=== PATIENT | male | born 1940 | race Caucasian/White ===

== ENCOUNTER → 2020-10-09 | Outpatient (CLI) | payer MEDICARE | END | disposition home or self-care (01) | LOC: OIH 11:03 | PROVIDERS: ATTEND Internal Medicine | DX: M47.816 Spondylosis without myelopathy or radiculopathy, lumbar region (principal); M48.061 Spinal stenosis, lumbar region without neurogenic claudication; M25.78 Osteophyte, vertebrae | CPT/HCPCS: 72100 ==

== ENCOUNTER → 2024-03-01 | Outpatient (CLI) | payer OTHER | END | disposition home or self-care (01) | LOC: RAH 08:57 | PROVIDERS: ATTEND Internal Medicine Pulmonary Disease | DX: J98.6 Disorders of diaphragm (principal); R06.09 Other forms of dyspnea | CPT/HCPCS: 76000 ==

== ENCOUNTER 2024-07-29 10:24 | Observation (INO) | payer OTHER ==
[~2024-07-29] VITALS: Ht 177.8 cm; Wt 93.0 kg
--- NOTE | 2024-07-29 10:40 | HMCIMG ---
Exam: NONCONTRAST CT BRAIN REASON: stroke. COMPARISON: None. TECHNIQUE: Images are obtained from vertex to the skull base. The exam was performed without IV contrast. FINDINGS: There are generous ventricles and sulci. There is decreased attenuation in the deep central white matter. These findings are consistent with atrophy. There are no acute appearing focal parenchymal lesions. There is no evidence of mass, intracranial hemorrhage or acute stroke. Posterior fossa and brainstem structures appear unremarkable. There are no abnormal fluid collections. Extra cranial soft tissues appear unremarkable as well. IMPRESSION: 1. Atrophy, no acute finding. CT was performed with one or more following dose reduction techniques: automated exposure control, adjustment of the mA and kv according to patient's size, or use of a iterative reconstruction technique.
--- NOTE | 2024-07-29 10:42 | ERN ---
General Chief Complaint: Stroke Symptoms Stated Complaint: SLURRED SPEECH, FACIAL NUMBNESS Time Seen by MD: 10:28 History of Present Illness Initial Comments 83-year-old male history of diabetes previous stroke hypertension presents for stroke-like symptoms. Patient reports that around 10:00 a.m. this morning he felt some numbness to the right side of his face and in his right arm. He said the symptoms lasted about 20 minutes and resolved. He had no motor dysfunction, but he says he felt a numbness sensation. He also reports that he was having difficulty speaking at the time, questionable slurred speech. He reports that since he has arrived here in the ER his symptoms have improved. He was speaking clearly. He denies any headache or vision changes. He denies any chest pain. He reports that he has been in his normal state of health recently. He reports that he did have a stroke in the past on the left side which has a similar presentation. He denies any prolonged deficits from that stroke. Allergies: Uncoded Allergies: UNKNOWN NAME OF MEDICATION STEPHANIRETHAN (Adverse Reaction, Mild, HALLUCINATIONS, 07/29/24) ROS Dictation CONSTITUTIONAL: No chills, no fever, no weakness, no diaphoresis, no malaise. HEAD/FACE: No signs of trauma. EENT: No eye pain, no blurred vision, no tearing, no double vision, no ear pain, no ear discharge, no nose pain, no nasal congestion, no throat pain, no throat swelling, no mouth pain. RESPIRATORY: No cough, no orthopnea, no SOB, no stridor, no wheezing. CARDIOVASCULAR: No chest pain, no edema, no palpitations, no syncope. GASTROINTESTINAL/ABDOMINAL: No abdominal pain, no constipation, no diarrhea, no nausea, no vomiting. GENITOURINARY: No abnormal discharge, no dysuria, no frequent urination, no hematuria. No complaints of pain in the genitals. MUSCULOSKELETAL: No back pain, no gout, no joint pain, no joint swelling, no muscle pain, no muscle stiffness, no neck pain. INTEGUMENTARY: No change in color, no change in hair/nails, no dryness, no lesion, no lumps, no rash. NEUROLOGICAL/PSYCH: Right-sided face numbness and anesthesias of the arm HEMATOLOGIC/LYMPHATIC: Not anemic, no history of blood clots, no apparent bleeding, no bruising, glands not swollen. All Systems Negative, Except as Noted. Physical Exam Physical Exam Dictation VITAL SIGNS: Reviewed. GENERAL APPEARANCE: Alert, oriented x3, no acute distress, generally weak. Wheelchair-bound. HEAD AND FACE: Non-traumatic. EYES: PERRL, pink conjunctivas, eyelid no trauma, anterior chamber clear. EARS: Pinnas intact and no signs of trauma or erythema. Ear canals clear and no discharge. TMs no erythema. NOSE: No discharge, no bleeding. OROPHARYNX: Mouth normal, teeth no caries, tongue pink. Pharynx clear, no erythema. Tonsils no exudates, no abscesses noted. Mucous membrane moist. NECK: Supple, non-tender, no thyromegaly, no masses, no JVD, no bruits. BREAST: Deferred. CHEST: No tenderness, no crepitus, no paradoxical movement, no retractions. LUNGS: Clear, well-ventilated, symmetric, no rales, no wheezing, no rhonchi, no stridor, good breath sounds bilaterally. HEART: Regular rate, regular rhythm, no murmur, no gallops. VASCULAR: No peripheral edema. ABDOMEN: Soft, positive bowel sounds, nondistended, no guarding, nontender, no rebound, no masses no hepatomegaly, no splenomegaly, no Cabrera's sign, no herni as. RECTAL: Deferred. GENITAL: Deferred. NEUROLOGICAL: Normal speech, gross motor function intact, gross sensory function intact. MUSCULOSKELETAL: Neck nontender, full range of motion, back nontender, full range of motion. EXTREMITIES: Nontender, full range of motion. SKIN: Color pink, dry, no turgor, no rash, no lacerations, no abrasions, no contusions. LYMPHATICS: Deferred. Stroke Patient?: Ischemic Is Patient Candidate for t-PA?: No Did the Patient Receive t-PA?: No NIH STROKE SCALE: NIH STROKE SCALE Response (Comments) Value Level of Consciousness Alert 0 Ask patient month and their age Answers both correct 0 Command to open eyes, make fist and let go Obeys both correct 0 Best gaze (horizontal eye movement) Normal 0 Visual Field Testing No Visual Field Loss 0 Facial Paresis Normal / Symmetrical 0 Motor Function - Left Arm Normal 0 Motor Function - Right Arm Normal 0 Motor Function - Left Leg Normal 0 Motor Function - Right Leg Normal 0 Limb Ataxia No Ataxia 0 Sensory-pin prick to arms, legs, trunk and face Mild to Moderate Decrease 1 Best Language (describe picture, name items and read) No Aphasia 0 Dysarthria (read several words) Normal Articulation 0 Extinction and Inattention Normal 0 Total 1 Neuro Comment: Total of one Results Laboratory and Microbiology Lab and Micro Result Laboratory Tests Test 07/29/24 10:58 White Blood Count 5.3 K/uL (4.8-10.8) Red Blood Count 4.77 MIL/uL (4.50-6.20) Hemoglobin 13.9 g/dL (14.0-18.0) L Hematocrit 42.0 % (42-54) Mean Corpuscular Volume 88.1 fL (79-99) Mean Corpuscular Hemoglobin 29.1 pg (27.0-33.0) Mean Corpuscular Hemoglobin Concent 33.1 g/dL (32.0-36.0) Red Cell Distribution Width 14.1 % (11.0-15.5) Platelet Count 174 K/uL (130-400) Mean Platelet Volume 10.1 fL (7.5-10.5) Immature Granulocyte % (Auto) 0.2 % (0-1) Neutrophils (%) (Auto) 60.2 % (40.0-77.0) Lymphocytes (%) (Auto) 28.2 % (21.0-51.0) Monocytes (%) (Auto) 7.2 % (3.0-13.0) Eosinophils (%) (Auto) 3.8 % (0.0-8.0) Basophils (%) (Auto) 0.4 % (0.0-5.0) Neutrophils # (Auto) 3.2 K/uL (1.8-7.7) Lymphocytes # (Auto) 1.5 K/uL (1.0-4.8) Monocytes # (Auto) 0.4 K/uL (0.1-1.0) Eosinophils # (Auto) 0.20 K/uL (0.00-0.70) Basophils # (Auto) 0.02 K/uL (0.00-0.20) Absolute Immature Granulocyte (auto 0.01 K/uL (0-1) Nucleated Red Blood Cells 0.0 % (0.0-0.19) Sodium Level 141 mmol/L (136-145) Potassium Level 4.1 mmol/L (3.5-5.1) Chloride Level 104 mmol/L (101-111) Carbon Dioxide Level 25 mmol/L (21-32) Blood Urea Nitrogen 16 mg/dL (7-18) Creatinine 1.1 mg/dL (0.5-1.3) Glomerular Filtration Rate Calc 67 mL/min (>90) Random Glucose 260 mg/dL (70-105) H Total Calcium 9.1 mg/dL (8.5-10.1) Total Creatine Kinase 208 U/L (21-232) LDL Cholesterol 40 mg/dL (0-99) MDM CC: Stroke symptoms, paresthesia to the right face and arm. Historian: Patient Comorbidities: Advanced age, or history of stroke, history of hypertension Differential diagnosis: Stroke, TIA, paresthesia Patient onset of symptoms 10:00 a.m.. NIHSS of one initial evaluation. CT head without contrast per my independent interpretation shows no acute bleed or abnormalities. There was some generalized atrophy. EKG: NSR rate of 65 with a left axis deviation good R-wave progression intervals are stable no STEMI. Independently interpreted by me. On re-evaluation patient reports that his symptoms have completely resolved. NIHSS of 0. There is no indication for thrombolytics at this time, he has a very low NIHSS with waxing symptoms currently has 0 symptoms. His lab work is unremarkable. We will admit for TIA/stroke workup. ED Course Orders Procedure Category Date Status Time Ct Head/Brain W/O CT 07/29/24 Resulted Contrast 10:28 Cbc With Differential LAB 07/29/24 In Process 10:29 Prothrombin Time With LAB 07/29/24 In Process INR 10:29 Partial LAB 07/29/24 In Process Thromboplastin Time 10:29 Chest 1vw RAD 07/29/24 Taken 10:29 12 Lead Ekg Tracing- EKG 07/29/24 Complete Technical 10:29 Creatine Kinase, Total LAB 07/29/24 Complete 10:29 Ldl Direct LAB 07/29/24 Complete 10:29 Troponin I High LAB 07/29/24 In Process Sensitivity 10:29 Urinalysis Profile LAB 07/29/24 Logged 10:29 B-Type Natriuretic LAB 07/29/24 In Process Peptide 10:29 Bedside Glucose CPOE 07/29/24 Transmitted Fingerstick 10:29 Basic Metabolic Panel LAB 07/29/24 Complete 10:29 Aspirin 325mg Tab PHA 07/29/24 Transmitted (Aspirin 325mg Tab) 11:30 Vital Signs Date Time Temp Pulse Resp B/P (MAP) Pulse Ox O2 Delivery O2 Flow Rate FiO2 07/29/24 10:25 97.9 63 20 167/77 95 Room Air DX & DISP Disposition: Inpatient Departure Impression: Primary Impression: TIA (transient ischemic attack) Critical Time: 30 minutes (Critical Care Procedure NoteAuthorized and Performed by: meTotal critical care time: Approximately 36 minutesDue to a high probability of clinically significant, life threatening deterioration, the patient required my highest level of preparedness to intervene emergently and I personally spent this critical care time directly and personally managing the patient. This critical care time included obtaining a history; examining the patient; pulse oximetry; ordering and review of studies; arranging urgent treatment with development of a management plan; evaluation of patient's response to treatment; frequent reassessment; and, discussions with other providers.This critical care time was performed to assess and manage the high probability of imminent, life-threatening deterioration that could result in multi-organ failure. It was exclusive of separately billable procedures and treating other patients and teaching time.Please see MDM section and the rest of the note for further information on patient assessment and treatment.) Condition: Stable Referrals: NONE (PCP) WILLIS PRATT DO Jul 29, 2024 10:42
--- NOTE | 2024-07-29 10:53 | EKG ---
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
[2024-07-29 11:12] LABS: BASOPHILS # (AUTO) 0.02 K/uL (0.00-0.20); BASOPHILS % (AUTO) 0.4 % (0.0-5.0); EOSINOPHILS % (AUTO) 3.8 % (0.0-8.0); IMMATURE GRANULOCYTE ABSOLUTE 0.01 K/uL (0-1); LYMPHOCYTES # (AUTO) 1.5 K/uL (1.0-4.8); LYMPHOCYTES % (AUTO) 28.2 % (21.0-51.0); MEAN CORPUSCULAR HEMOGLOBIN 29.1 pg (27.0-33.0); MEAN CORPUSCULAR HGB CONC 33.1 g/dL (32.0-36.0); MEAN CORPUSCULAR VOLUME 88.1 fL (79-99); MONOCYTES # (AUTO) 0.4 K/uL (0.1-1.0); MONOCYTES % (AUTO) 7.2 % (3.0-13.0); NEUTROPHILS # (AUTO) 3.2 K/uL (1.8-7.7); NEUTROPHILS % (AUTO) 60.2 % (40.0-77.0); PLATELET COUNT (AUTO) 174 K/uL (130-400); RED BLOOD CELL COUNT(AUTO) 4.77 MIL/uL (4.50-6.20); RED CELL DISTRIBUTION WIDTH 14.1 % (11.0-15.5); WHITE BLOOD COUNT (AUTO) 5.3 K/uL (4.8-10.8)
[2024-07-29 11:14] LABS: CREATININE 1.1 mg/dL (0.5-1.3); POTASSIUM 4.1 mmol/L (3.5-5.1)
[2024-07-29 11:28] LABS: INR 0.99 (0.85-1.15); PROTHROMBIN TIME 10.7 SEC (9.6-11.6)
[2024-07-29 11:30] LABS: PARTIAL THROMBOPLASTIN TIME 26.5 SEC (26.3-35.5)
--- NOTE | 2024-07-29 11:35 | NUR ---
MOVED FROM ER 7 TO ER 10 AT THIS TIME
--- NOTE | 2024-07-29 11:41 | NUR ---
AT THIS TIME PATIENT STATES ALL SYMPTOMS HAVE RESOLVED
[2024-07-29 11:43] LABS: B-TYPE NATRIURETIC PEPTIDE 26 pg/mL (0-100)
--- NOTE | 2024-07-29 11:45 | HMCIMG ---
CHEST 1VW REASON: stroke symptoms COMPARISON: None. FINDINGS: Single view of the chest was obtained. Lungs are clear. Heart size is normal. There is no pulmonary vascular congestion. Mediastinum and bony thorax appear unremarkable. Elevated left hemidiaphragm is again noted. IMPRESSION: 1. No acute process seen in chest and no interval change.
--- NOTE | 2024-07-29 11:46 | NUR ---
NEUROLOGY CONSULT: PATIENT REPORT GIVEN TO DR MCGRAW BY DR PRATT
[2024-07-29] MEDS: ASPIRIN 325MG TAB PO ONE (11:49)
[2024-07-29] MEDS ORDERED: PANT40TA54 PO (11:59)
[2024-07-29] MEDS ORDERED: ASPI-1005 PO (11:59)
[2024-07-29] MEDS ORDERED: METF-446 PO (11:59)
[2024-07-29] MEDS ORDERED: ROSU20TA98 PO (11:59)
[2024-07-29] MEDS ORDERED: LUTE1CAP5 PO (11:59)
[2024-07-29] MEDS ORDERED: MECO10005 PO (11:59)
[2024-07-29] MEDS ORDERED: KETO15CR2 TP ×2 (11:59)
[2024-07-29] MEDS ORDERED: AMLO-257 PO (11:59)
[2024-07-29] MEDS ORDERED: OMEG100033 PO (11:59)
--- NOTE | 2024-07-29 11:59 | NUR ---
HOME MEDICATIONS UPDATED ON EMR
--- NOTE | 2024-07-29 12:09 | HP ---
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 Patient states his symptoms started around 10:00 a.m. this morning when he noted that he was having right facial numbness and numbness in the right upper extremity with associated speaking difficulty. He noted his speech was slurred. Thereafter he went to the ED where his symptoms resolved without intervention. He denied any headaches, fall, chest pain, shortness of breath, lower extremity pain or numbness, abdominal pain, nausea, vomiting. Patient states he had a previous stroke around few month ago. Initially started on full-dose aspirin. He followed up with a neurologist around two weeks ago and was later switched to aspirin 81 mg. Patient currently has been taking aspirin 325 mg and has not switched his medication. Denied any diplopia, dysphagia, problems with ambulation. Labs in the ED were notable for white count of 5.3, hemoglobin was 13.9, platelet count was 174k, sodium was 141, potassium was 4.1 creatinine was 1.1, blood glucose was 260 one troponin was negative x1 Patient underwent a CT head which was negative Neurology was consulted by ED physician and recommended patient to be admitted for workup of possible TIA REVIEW OF SYSTEMS CONSTITUTIONAL: Denies fevers, chills, or night sweats. No unintentional weight loss reported. NEUROLOGICAL: Denies headache, amaurosis fugax, motor weakness, ve rtigo/spinning sensation, gait abnormalities, or tremors. Positive for paresthesias on the right side of the face and right side of the ENT: No hearing loss, otalgia, otorrhea, rhinitis, rhinorrhea, hoarseness, or sore throat. CARDIOVASCULAR: Denies any exertional angina, dyspnea on exertion, orthopnea, paroxysmal nocturnal dyspnea, palpitations, life-threatening arrhythmias, claudication. PULMONARY: Denies any shortness of breath, cough, phlegm/sputum, hemoptysis, pleuritic chest pain. SLEEP: Denies morning headaches, daytime somnolence or napping. Denies difficulty falling asleep, staying asleep, waking from sleep. Denies knowledge of snoring. GASTROINTESTINAL: Denies any type of dysphagia to either liquids or solids. Denies nausea, vomiting, pyrosis, early satiety, abdominal pain, diarrhea, constipation, or changes in stool consistency or caliber. Denies coffee-ground emesis, hematemesis, hematochezia, or melanotic stools. GENITOURINARY: Denies frequency, urgency, nocturia, hematuria or incontinence (Storage/Irritative symptoms.) Low urinary stream, straining to void, urinary intermittency or hesitancy, splitting of the voiding stream, terminal dribbling. ENDOCRINOLOGIC: Denies polyuria, polydipsia, polyphagia or heat/cold intolerances. HEMATOLOGIC: Denies thrombophilia/previous clots, or coagulopathy/bleeding disorders. ONCOLOGIC: Denies personal history of malignancy. DERMATOLOGIC: Denies rashes or pruritus. PSYCHIATRIC: Denies any suicidal or homicidal ideation. Denies hallucinations. 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 NEUROLOGICAL: Cranial nerves II-XII grossly intact. Motor is 5/5 in bilateral upper and lower extremities proximal to distal. He is able to move his right lower extremity he. He has had previous surgery on the right thigh which causes him not to move his right lower extremity HEENT: Face is symmetric. Pupils are equal and reactive. Extraocular movements are intact. NECK: Supple. No JVD. No thyromegaly. No submental, submandibular, pre- /postauricular, occipital or supraclavicular lymphadenopathy. CHEST: Normal chest expansion. No Telemetry. LUNGS: Absence of any rales, rhonchi or any wheezing. CARDIOVASCULAR: Regular. S1 and S2 normal. No appreciable rubs, murmurs or gallops. ABDOMEN: Soft, nontender, and nondistended. There is no rebound, voluntary guarding, or rigidity. : Deferred. No Gregory. EXTREMITIES: Non-edematous and not cyanotic. No clubbing. Good capillary refill. SKIN: No skin breakdown. Vital Sign (Last 24 Hours) 07/29/24 07/29/24 10:25 11:39 Temp 97.9 Pulse 66 Resp 20 B/P (MAP) 168/74 Pulse Ox 96 O2 Delivery Room Air* O2 Flow Rate 0 FiO2 21 LABS: Laboratory: Test 07/29/24 10:58 Range/Units White Blood Count 5.3 4.8-10.8 K/uL Red Blood Count 4.77 4.50-6.20 MIL/uL Hemoglobin 13.9 L 14.0-18.0 g/dL Hematocrit 42.0 42-54 % Mean Corpuscular Volume 88.1 79-99 fL Mean Corpuscular Hemoglobin 29.1 27.0-33.0 pg Mean Corpuscular Hemoglobin Concent 33.1 32.0-36.0 g/dL Red Cell Distribution Width 14.1 11.0-15.5 % Platelet Count 174 130-400 K/uL Mean Platelet Volume 10.1 7.5-10.5 fL Immature Granulocyte % (Auto) 0.2 0-1 % Neutrophils (%) (Auto) 60.2 40.0-77.0 % Lymphocytes (%) (Auto) 28.2 21.0-51.0 % Monocytes (%) (Auto) 7.2 3.0-13.0 % Eosinophils (%) (Auto) 3.8 0.0-8.0 % Basophils (%) (Auto) 0.4 0.0-5.0 % Neutrophils # (Auto) 3.2 1.8-7.7 K/uL Lymphocytes # (Auto) 1.5 1.0-4.8 K/uL Monocytes # (Auto) 0.4 0.1-1.0 K/uL Eosinophils # (Auto) 0.20 0.00-0.70 K/uL Basophils # (Auto) 0.02 0.00-0.20 K/uL Absolute Immature Granulocyte (auto 0.01 0-1 K/uL Nucleated Red Blood Cells 0.0 0.0-0.19 % Prothrombin Time 10.7 9.6-11.6 SEC Prothromb Time International Ratio 0.99 0.85-1.15 Activated Partial Thromboplast Time 26.5 26.3-35.5 SEC Sodium Level 141 136-145 mmol/L Potassium Level 4.1 3.5-5.1 mmol/L Chloride Level 104 101-111 mmol/L Carbon Dioxide Level 25 21-32 mmol/L Blood Urea Nitrogen 16 7-18 mg/dL Creatinine 1.1 0.5-1.3 mg/dL Glomerular Filtration Rate Calc 67 >90 mL/min Random Glucose 260 H 70-105 mg/dL Total Calcium 9.1 8.5-10.1 mg/dL Total Creatine Kinase 208 21-232 U/L Troponin I High Sensitivity 5 4-75 ng/L B-Type Natriuretic Peptide 26 0-100 pg/mL LDL Cholesterol 40 0-99 mg/dL DIAGNOSTICS / RADIOLOGY: [ ] ASSESSMENT: Suspected TIA POA Hypertension Hyperlipidemia History of recent stroke History of malignancy PLAN: - patient to be admitted to [facility] -in reference to suspected TIA. Patient has been given aspirin. We will be we will obtain a CT angio of the head and neck, brain MRI. We will request consultation with Neurology. We will have patient on permissive hypertension for 24 hours. -check TSH, hemoglobin A1c, procalcitonin CRP -obtain home medications which will be reconciled once available -further orders per hospitalization course. Advanced Care Planning Which of the following were discussed: Hospice care: Yes __ No _x_ Therapeutic options: Yes __ No __ Advance directives: Yes __ No __ Other discussions: Discussed with who?: patient (Patient, family or surrogates) Voluntary nature of this service was explained to the patient? Yes _x_ No __ Amount of time spent: 35 minutes SMITA Burnett MD, MD Jul 29, 2024 12:09
[2024-07-29] MEDS: 0.9%NACL 1000ML 1,000 ML IV SCH (12:14)
[2024-07-29 12:30] LABS: APPEARANCE,URINE CLEAR (CLEAR); BILIRUBIN,URINE NEGATIVE (NEGATIVE); COLOR,URINE LIGHT-YELLOW (YELLOW); GLUCOSE, URINE (UA) 150 mg/dL (NEGATIVE); KETONES,URINE NEGATIVE (NEGATIVE); LEUKOCYTE ESTERASE ,URINE 75 Leu/uL (NEGATIVE); NITRATE,URINE NEGATIVE (NEGATIVE); OCCULT BLOOD,URINE NEGATIVE (NEGATIVE); PROTEIN,URINE NEGATIVE (NEGATIVE); UROBILINOGEN,URINE 0.2 mg/dL (0.2-1.0)
[2024-07-29] MEDS ORDERED: hydrALAZine 20MG/ML VIAL IV PRN (12:30)
--- NOTE | 2024-07-29 13:00 | NUR ---
NOTE WHEN PATIENT BACK FROM MRI EXPERIENCED EPISODIC DIFFICULTY SPEAKING WITH MILD SLURRED SPEECH. EPISODE LASTED ABOUT 3-5 MINUTES. AT THIS TIME THE PATIENT'S SPEECH IS BACK TO BASELINE. DR ST PAGED TO REPORT.
[2024-07-29 13:13] LABS: ADD UA MICROSCOPIC YES
[2024-07-29] MEDS ORDERED: IOHEXOL-350 75 ML VIAL IV ONE (13:13)
[2024-07-29 13:15] LABS: BACTERIA,URINE RARE /HPF (None Seen); RBC,URINE 0-1 /HPF (0-1)
--- NOTE | 2024-07-29 14:11 | HMCIMG ---
MR BRAIN WO CON REASON: TIA VS STROKE TECHNIQUE: Routine cerebral imaging protocol was performed. Exam was performed without IV contrast. STUDIES FOR COMPARISON: None. FINDINGS: There are diffusely generous ventricles and sulci. Findings are consistent with diffuse global atrophy. There are also focal areas of increased signal intensity within the deep central white matter consistent with small vessel disease. There are no focal mass lesions. There are no abnormal fluid collections. There is no evidence of intracranial hemorrhage. Diffusion-weighted images are negative for acute ischemic event. Posterior fossa and brainstem structures appear normal as well. Calvarium appears unremarkable. Extracranial soft tissues appear normal as well. IMPRESSION: 1. Diffusely generous ventricles and sulci consistent with a component of global atrophy. 2. No acute finding, no evidence of intracranial hemorrhage or acute stroke.
--- NOTE | 2024-07-29 14:13 | HMCIMG ---
CT ANGIO HEAD AND NECK REASON: TIA TECHNIQUE: Images were obtained from thoracic inlet through the vertex of the skull before and after bolus IV infusion of 75 ml of Omnipaque 350 2D and 3D multiplanar reconstruction images were obtained in the head and neck. FINDINGS: Post contrast images in the neck show normal-appearing common and internal carotid arteries. Bifurcations appear unremarkable. There is no evidence of atherosclerotic change or focal narrowing. There is a balanced vertebral artery system, both are patent to the basilar confluence. Images in the brain demonstrate normal-appearing internal carotid arteries. Anterior, middle and posterior cerebral arteries appear normal. Posterior fossa vessels are unremarkable as well. There is no evidence of aneurysm or AVM. There is no evidence of focal vessel occlusion. IMPRESSION: Normal CT angiography of the head and neck. CT was performed with one or more following dose reduction techniques: automated exposure control, adjustment of the mA and kv according to patient's size, or use of a iterative reconstruction technique.
[2024-07-29 14:14] LABS: HEMOGLOBIN A1C 7.3 % (4.0-6.0)
--- NOTE | 2024-07-29 14:15 | NUR ---
BEDSIDE SWALLOW EVAL COMPLETED. No s/s of aspiration. Recommend regular solids, thin liquids and pills whole with liquids as tolerated. TOOLSMITH reviewed results and recommendations with patient, brother and nurse Bryon. TOOLSMITH educated patient on risks and consequences of aspiration. Speech therapy not warranted at this time. All questions answered. Addendum: 07/29/[address]ERNARDINO SARGENT Amended: Links added.
--- NOTE | 2024-07-29 14:20 | NUR ---
COGNITIVE-LINGUISTIC EVALUATION COMPLETED. WITHIN FUNCTIONAL LIMITS. EVALUATION: Pt AAOX4. Pt REQUESTS WANTS AND NEEDS INDEPENDENTLY WITH CLEAR SPEECH INTELLIGIBILITY. Pt COMMUNICATING AT CONVERSATIONAL LEVEL WITH NO DEFICITS IDENTIFIED AT THIS TIME. Pt COMPLETED COGNITIVE-LINGUISTIC EVALUATION WITH CORRECT AND TIMELY ANSWERS. SPEECH THERAPY NOT WARRANTED. ALL QUESTIONS ANSWERED AT THIS TIME. PRIME MINISTER REVIEWED RESULTS AND RECOMMENDATIONS WITH PATIENT AND NURSE ROD. Addendum: 07/29/[address]ERNARDINO SARGENT Amended: Links added.
[2024-07-29] MEDS: acetaMINOPHEN 500 MG TABLET PO PRN (14:46)
--- NOTE | 2024-07-29 16:10 | NUR ---
DCP-pending Pt is a retired who lives alone. Recently lost his 2 months ago. His PCP and pharmacy are with the [facility]. Pt does not have any medical equipment and states he is independent. Pt emergency contact is his brother Daniele Robbins [phone]. Pt anticipates discharge plan is for home. However, pending further recommendations due to possible stroke. Addendum: 07/29/24 at 1617 by IZABELA DA SILVA RN CM Amended: Links added.
[2024-07-29 17:45] VITALS: BP 161/74; PULSE 76; RESP 19; TEMP 98.5
[2024-07-29 19:00] VITALS: BP 145/80; PULSE 74; RESP 19; TEMP 97.6
--- NOTE | 2024-07-29 19:21 | CONS ---
CONSULTATION NOTE Date of Service: Jul 29, 2024 Reason for Consultation: Evaluation of right face and right upper extremity numbness and tingling with aphasia Requesting Physician: Hospitalist HISTORY OF PRESENT ILLNESS: Mr. Robbins, is a very nice 83 years old right-handed gentleman who has a past medical history remarkable for dyslipidemia, prediabetes, right lower extremity sarcoma in 2001, TIA who was admitted for evaluation and management of a right hemifacial numbness right upper extremity numbness and difficulty speaking. The patient reports that this morning around 10:00 a.m. he experienced a sudden onset of right arm numbness, right facial numbness and difficulty walking. He also experienced difficulty speaking which lasted for about 5 minutes. The symptoms began while he was on his way home after eating with friends. He denies experiencing room spinning sensation but reports feeling unstable. The patient arrived at the emergency room at approximately 10:15 a.m. and his symptoms have resolved while in the emergency room. NIH stroke scale was 0. I was contacted by the emergency room physician and because the patient's symptoms completely resolved the patient was not a candidate for tenecteplase. A CT scan of the head without contrast was negative for stroke. A CTA head and neck with no large vessel occlusion or significant stenosis. Mr. Bravo is currently taking daily aspirin and a cholesterol medication he is not able to remember. He reports having trouble with mental clarity today, stating "my my has not been clear today I am having trouble really getting things clear". 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 He also has limited mobility in his right leg due to muscle loss from his previous sarcoma. REVIEW OF SYSTEMS CONSTITUTIONAL: Denies fever, chills, or fatigue. HEAD/FACE: No signs of trauma. EENT: Denies eye pain, blurred vision, double vision, or light sensitivity. RESPIRATORY: Denies shortness of breath, cough, wheezing CARDIOVASCULAR: Denies chest pain, palpitation, syncope GASTROINTESTINAL/ABDOMINAL: Denies abdominal pain, constipation, diarrhea, nausea or vomiting GENITOURINARY: Denies dysuria or hematuria. MUSCULOSKELETAL: Denies joint pain, tenderness, or trauma. INTEGUMENTARY: Denies rash or itchiness NEUROLOGICAL/PSYCH: Right eye vision loss. Right facial numbness tingling right upper extremity numbness tingling difficulty speaking. Decreased mental clarity PAST MEDICAL HISTORY: Dyslipidemia, right lower extremity sarcoma 2002, prediabetes. PAST SURGICAL HISTORY: Right lower extremity sarcoma surgical treatment PAST SOCIAL HISTORY: No tobacco alcohol recreational drug abuse FAMILY HISTORY: No family history of stroke or seizures Uncoded Allergies: UNKNOWN NAME OF MEDICATION ALERETHAN (Adverse Reaction, Mild, HALLUCINATIONS, 07/29/24) PHYSICAL EXAM Mental status: The patient is alert, attentive, and oriented. Speech is clear and fluent with good repetition, comprehension, and naming. Pt recalls 3/3 objects at 5 minutes. Cranial nerves: CN II: Visual levy are full to confrontation. CN III, IV, : At primary gaze, there is no eye deviation. CN V: Facial sensation is intact to pinprick in all 3 divisions bilaterally. Corneal responses are intact. CN VII: Face is symmetric with normal eye closure and smile. CN VIII: Hearing is normal to rubbing fingers CN IX, X: Palate elevates symmetrically. Phonation is normal. CN XI: Head turning and shoulder shrug are intact CN XII: Tongue is midline with normal movements and no atrophy. Motor: Right lower weakness otherwise 5/5 Reflexes: Reflexes are 2+ and symmetric at the biceps, triceps, knees, and ankles. Plantar responses are flexor. Sensory: Light touch, pinprick, position sense, and vibration sense are intact in fingers and toes. Coordination: Rapid alternating movements and fine finger movements are intact. There is no dysmetria on [id number] and ajpt-gsfp-yban. There are no abnormal or extraneous movements. Romberg is absent. Gait/Stance: Not evaluated NIH stroke scale: 4 (vision loss and right lower extremity weakness). Vital Sign (Last 24 Hours) 07/29/24 17:45 Temp 98.4 Pulse 76 Resp 19 B/P (MAP) 161/74 Pulse Ox 94 O2 Delivery Room Air* O2 Flow Rate 0 FiO2 21 LABS: Laboratory: Test 07/29/24 11:32 07/29/24 10:58 Range/Units Urine Color LIGHT-YELLOW YELLOW Urine Appearance CLEAR CLEAR Urine pH 6.0 5.0-8.0 Urine Specific [place] 1.010 1.001-1.031 Urine Protein NEGATIVE NEGATIVE mg/dL Urine Glucose (UA) 150 H NEGATIVE mg/dL Urine Ketones NEGATIVE NEGATIVE mg/dL Urine Occult Blood NEGATIVE NEGATIVE Urine Nitrate NEGATIVE NEGATIVE Urine Bilirubin NEGATIVE NEGATIVE mg/dL Urine Urobilinogen 0.2 0.2-1.0 mg/dL Urine Leukocyte Esterase 75 H NEGATIVE Christian/uL Urine RBC 0-1 0-1 /HPF Urine WBC 11-25 H 0-1 /HPF Urine Bacteria RARE None Seen /HPF White Blood Count 5.3 4.8-10.8 K/uL Red Blood Count 4.77 4.50-6.20 MIL/uL Hemoglobin 13.9 L 14.0-18.0 g/dL Hematocrit 42.0 42-54 % Mean Corpuscular Volume 88.1 79-99 fL Mean Corpuscular Hemoglobin 29.1 27.0-33.0 pg Mean Corpuscular Hemoglobin Concent 33.1 32.0-36.0 g/dL Red Cell Distribution Width 14.1 11.0-15.5 % Platelet Count 174 130-400 K/uL Mean Platelet Volume 10.1 7.5-10.5 fL Immature Granulocyte % (Auto) 0.2 0-1 % Neutrophils (%) (Auto) 60.2 40.0-77.0 % Lymphocytes (%) (Auto) 28.2 21.0-51.0 % Monocytes (%) (Auto) 7.2 3.0-13.0 % Eosinophils (%) (Auto) 3.8 0.0-8.0 % Basophils (%) (Auto) 0.4 0.0-5.0 % Neutrophils # (Auto) 3.2 1.8-7.7 K/uL Lymphocytes # (Auto) 1.5 1.0-4.8 K/uL Monocytes # (Auto) 0.4 0.1-1.0 K/uL Eosinophils # (Auto) 0.20 0.00-0.70 K/uL Basophils # (Auto) 0.02 0.00-0.20 K/uL Absolute Immature Granulocyte (auto 0.01 0-1 K/uL Nucleated Red Blood Cells 0.0 0.0-0.19 % Prothrombin Time 10.7 9.6-11.6 SEC Prothromb Time International Ratio 0.99 0.85-1.15 Activated Partial Thromboplast Time 26.5 26.3-35.5 SEC Sodium Level 141 136-145 mmol/L Potassium Level 4.1 3.5-5.1 mmol/L Chloride Level 104 101-111 mmol/L Carbon Dioxide Level 25 21-32 mmol/L Blood Urea Nitrogen 16 7-18 mg/dL Creatinine 1.1 0.5-1.3 mg/dL Glomerular Filtration Rate Calc 67 >90 mL/min Random Glucose 260 H 70-105 mg/dL Hemoglobin A1c 7.3 H 4.0-6.0 % Estimated Average Glucose (eAG) 163 H 70-126 mg/dL Total Calcium 9.1 8.5-10.1 mg/dL Total Creatine Kinase 208 21-232 U/L Troponin I High Sensitivity 5 4-75 ng/L B-Type Natriuretic Peptide 26 0-100 pg/mL LDL Cholesterol 40 0-99 mg/dL Procalcitonin < 0.05 L 0.05-0.5 ng/mL Thyroid Stimulating Hormone (TSH) 3.53 0.36-3.74 uIU/mL DIAGNOSTICS / RADIOLOGY: CT scan of the head without contrast: No ICH. CTA head and neck: No major atherosclerotic disease MRI of the brain without contrast: No acute strokes ASSESSMENT / PLAN: 1).- transient ischemic attack - based on the patient's history and physical examination it is likely this patient had a TIA event that completely resolved. MRI of the brain without contrast was negative for stroke. CTA head and neck with no large vessel occlusion or significant stenosis. Transthoracic echocardiogram is pending. The patient is currently on aspirin 81 mg p.o. daily. Add Plavix 75 mg p.o. daily and PPI to protect GI hemorrhage and other possible antiplatelet side effects and complications. The patient will benefit from dual antiplatelet therapy for 21 days followed by monotherapy based on the point and chance trials. Afterwards, continue patient on Plavix 75 mg p.o. daily. Continue patient on atorvastatin as initiated by primary team. Follow PT/OT/ST recommendations prior to discharge. Allow permissive hypertension of 140-220 millimeter of mercury systolic over the 1st 24 hours followed by blood pressure goal less than 130/80 mm of mercury. LDL goal less than 70 hemoglobin A1c goal less than 7%. Thank you for your consultation I will sign off. Please reconsult if the transthoracic echocardiogram shows any major abnormalities. SONIA MELTON MD Jul 29, 2024 19:21
[2024-07-29 20:00] VITALS: O2SAT 93
[2024-07-29] MEDS: Lutein/Zeaxanthin (Ocuvite Lutein 25-5 mg Softgel) 1 CAP PO SCH (21:00)
[2024-07-29] MEDS: MECOBALAMIN PO SCH (21:00)
[2024-07-29] MEDS ORDERED: FAMOTIDINE 20MG VIAL IV SCH (21:00)
[2024-07-29] MEDS: PANTOPrazole 40 MG TAB DR PO SCH (21:46)
[2024-07-29] MEDS: atorVAStatin 40 MG TABLET PO SCH (21:46)
[2024-07-29] MEDS: amLODIPine 5 MG TAB PO SCH (21:46)
[2024-07-30] VITALS: BP 153/82; PULSE 78; RESP 18; TEMP 98.3
[2024-07-30 04:00] VITALS: BP 143/72; PULSE 68; RESP 17; TEMP 97.9
[2024-07-30 04:16] LABS: BASOPHILS # (AUTO) 0.02 K/uL (0.00-0.20); BASOPHILS % (AUTO) 0.3 % (0.0-5.0); EOSINOPHILS % (AUTO) 1.3 % (0.0-8.0); HEMATOCRIT 39.5 % (42-54); IMMATURE GRANULOCYTE ABSOLUTE 0.02 K/uL (0-1); LYMPHOCYTES # (AUTO) 2.3 K/uL (1.0-4.8); LYMPHOCYTES % (AUTO) 30.2 % (21.0-51.0); MEAN CORPUSCULAR HEMOGLOBIN 29.2 pg (27.0-33.0); MEAN CORPUSCULAR HGB CONC 33.2 g/dL (32.0-36.0); MONOCYTES # (AUTO) 0.7 K/uL (0.1-1.0); MONOCYTES % (AUTO) 8.8 % (3.0-13.0); NEUTROPHILS # (AUTO) 4.4 K/uL (1.8-7.7); NEUTROPHILS % (AUTO) 59.1 % (40.0-77.0); PLATELET COUNT (AUTO) 169 K/uL (130-400); RED BLOOD CELL COUNT(AUTO) 4.49 MIL/uL (4.50-6.20); WHITE BLOOD COUNT (AUTO) 7.5 K/uL (4.8-10.8)
[2024-07-30 04:36] LABS: POTASSIUM 3.8 mmol/L (3.5-5.1)
[2024-07-30 08:00] VITALS: BP 128/69; PULSE 75; RESP 18; TEMP 97.9
[2024-07-30] MEDS: cloPIDOgrel 75MG TAB PO SCH (09:00)
[2024-07-30 10:04] VITALS: O2SAT 92
[2024-07-30] MEDS: ASPIRIN 81MG CHEW TAB PO SCH (10:04)
--- NOTE | 2024-07-30 10:05 | NUR ---
PLAVIX PT REFUSED PLAVIX DUE TO PREVIOUS SIDE EFFECT OF HALLUCINATIONS.
[2024-07-30 12:00] VITALS: BP 131/74; PULSE 71; RESP 19; TEMP 98.1
--- NOTE | 2024-07-30 13:20 | HMCSR ---
APPROVED REPORT EXAM: Two-dimensional and M-mode echocardiogram with Doppler and color Doppler. INDICATION ICD: Transient ischemic attack 2D Dimensions RVDd3.5 cmLVEF(%)58.9 (>50%)LVED Vol(simp.)77.2 mL IVSd0.8 (0.7-1.1cm)FS(%)30 %LVES Vol(simp.)28.7 mL LVDd3.0 (3.8-5.6cm)LA (2D)3.8 (1.6-4.0cm)LVEF(%, simp.)63 % PWd1.0 (0.7-1.1cm)Ao Root(2D)3.5 (2.0-3.7cm)LA ESV INDEX (4CH)22.50 mL/m2 IVSs1.2 cmLVOT diam2.1 (1.8-2.4cm)LA ESV INDEX (2CH)22.50 mL/m2 LVDs2.1 (2.5-4.0cm)LA ESV INDEX (BP)24.50 mL/m2 PWs1.5 cm Deformation Strain Apical 422.0 % Apical 219.0 % Apical 322.0 % Global Kzmdob60.0 % M-Mode Dimensions EPSS0.9 cm LA (MM)4.2 (1.6-4.0cm) Ao Root(MM)3.1 (2.0-3.7cm) Aortic Valve AoV VTI0.3 mAo Mean GR5.0 mmHgLVOT VTI0.23 m JIM (VMAX)2.5 cm2AVA (VTI) 2.5 cm2 Mitral Valve MV E Vmax72.8 cm/sDECEL Fisu036 ms MV A Vmax75.2 cm/sP 1/2 T80 ms E/A ratio1.0MVA (PHT)2.8 cm2 TDI E/E' Ziaiyh49.5E/E' Yvyjtjk50.4 Medial E' Peak V5.40 cm/sLateral E' Peak V7.00 cm/s Pulmonary Valve PV VTI0.20 mPV Mean GR2 mmHg Left Ventricle Left ventricular cavity size is normal. There is normal left ventricular wall thickness. LVEF is 60-6 5%. The left ventricular diastolic function is normal. Right Ventricle The right ventricle is normal size. The right ventricular systolic function is normal. Atria The left atrium size is normal. The right atrium is mildly dilated. Aortic Valve The aortic valve is normal in structure and function. No aortic regurgitation is present. There is no aortic valvular stenosis. Mitral Valve The mitral valve is normal in structure and function. There is no mitral valve regurgitation noted. T here is no mitral valve stenosis. Tricuspid Valve The tricuspid valve is normal in structure and function. There is no tricuspid valve regurgitation no horace. Pulmonic Valve The pulmonary valve is normal in structure and function. There is no pulmonic valvular regurgitation. Great Vessels The aortic root is normal in size. IVC is normal in size and collapses <50% with inspiration. Pericardium Trace pericardial effusion. Other Information Quality : Fair Conclusion Left ventricular cavity size is normal. LVEF is 60-65%. The left ventricular diastolic function is normal. The right ventricle is normal size. The right ventricular systolic function is normal. The left atrium size is normal. The right atrium is mildly dilated. No valvular pathology. Trace pericardial effusion.
[2024-07-30] MEDS ORDERED: CLOP-31 PO (13:30)
[2024-07-30] MEDS ORDERED: LEVO250T75 PO (13:30)
--- NOTE | 2024-07-30 13:36 | DS ---
Discharge Summary Hospital Course Summary: DATE OF ADMISSION: 07/29/2024] DATE OF DISCHARGE:[07/30/2024] DISPOSITION:[Home] CONDITION:[Medically cleared] CONSULTANTS:[Neurologist] FOLLOW UP APPOINTMENTS:[PCP 2 to 3 days] PROCEDURES:[None] IMAGING: report attached to summary MICROBIOLOGY: report attached to summary ACTIVITY:[One-person assist/standby] HOME MEDICATIONS: see med recc NEW MEDICATIONS:[See med rec] EMERGENCY INSTRUCTIONS: The patient was instructed to present to the nearest Emergency departmentr or call 911 once their symptoms will return or worsen Hemodialysis Patient Care Specialist(s): This is a 83-year-old male with past medical history of hypertension, hyperlipidemia, history of stroke, history of malignancy (possible sarcoma) around two weeks ago who presented to the hospital secondary to facial numbness numbness in the right arm. Patient states his symptoms started around 10:00 a.m. this morning when he noted that he was having right facial numbness and numbness in the right upper extremity with associated speaking difficulty. He noted his speech was slurred. Thereafter he went to the ED where his symptoms resolved without intervention. He denied any headaches, fall, chest pain, shortness of breath, lower extremity pain or numbness, abdominal pain, nausea, vomiting. Patient states he had a previous stroke around few month ago. In itially started on full-dose aspirin. He followed up with a neurologist around two weeks ago and was later switched to aspirin 81 mg. Patient currently has been taking aspirin 325 mg and has not switched his medication. Denied any diplopia, dysphagia, problems with ambulation. Throughout the hospitalization radiology head CT was negative brain MRI negative chest x-ray negative 2D echo normal. Patient was evaluated by neurologist and per his recommendation based on the patient's physical examination is likely that the patient had a TIA event that completely resolved. Neurologist as recommending to discharge patient on dual antiplatelet therapy for 21 days followed by monotherapy based on point and chest trial. Plavix 75 mg p.o. daily to continue as well as aspirin 81 mg. Patient denies any shortness of breath, chest pain, nausea, vomiting or any other discomfort. Patient will be discharged on levofloxacin 250 mg daily for seven days for UTI. Follow-up with PCP in 2 to 3 days. Follow up with neurologist as needed. Procedure(s): REVIEW OF SYSTEMS CONSTITUTIONAL: Denies fevers, chills, or night sweats. No unintentional weight loss reported. NEUROLOGICAL: Denies headache, amaurosis fugax, motor weakness, vertigo/spinning sensation, gait abnormalities, or tremors. Positive for paresthesias on the right side of the face and right side of the ENT: No hearing loss, otalgia, otorrhea, rhinitis, rhinorrhea, hoarseness, or sore throat. CARDIOVASCULAR: Denies any exertional angina, dyspnea on exertion, orthopnea, paroxysmal nocturnal dyspnea, palpitations, life-threatening arrhythmias, claudication. PULMONARY: Denies any shortness of breath, cough, phlegm/sputum, hemoptysis, pleuritic chest pain. SLEEP: Denies morning headaches, daytime somnolence or napping. Denies difficulty falling asleep, staying asleep, waking from sleep. Denies knowledge of snoring. GASTROINTESTINAL: Denies any type of dysphagia to either liquids or solids. Denies nausea, vomiting, pyrosis, early satiety, abdominal pain, diarrhea, constipation, or changes in stool consistency or caliber. Denies coffee-ground emesis, hematemesis, hematochezia, or melanotic stools. GENITOURINARY: Denies frequency, urgency, nocturia, hematuria or incontinence (Storage/Irritative symptoms.) Low urinary stream, straining to void, urinary intermittency or hesitancy, splitting of the voiding stream, terminal dribbling. ENDOCRINOLOGIC: Denies polyuria, polydipsia, polyphagia or heat/cold intolerances. HEMATOLOGIC: Denies thrombophilia/previous clots, or coagulopathy/bleeding disorders. ONCOLOGIC: Denies personal history of malignancy. DERMATOLOGIC: Denies rashes or pruritus. PSYCHIATRIC: Denies any suicidal or homicidal ideation. Denies hallucinations. Assessment/Plan: ASSESSMENT: TIA POA Uncontrolled hypertension POA Hyperlipidemia History of recent stroke History of malignancy Home Medications: Reported Medications Ketoconazole (Ketoconazole) 2 % Cream.gm., 1 APPL TP DAILY for 7 Days, #15 GM 0 Refills apply to affected area(s) 07/29/24 Ketoconazole (Ketoconazole) 2 % Cream.gm., 1 APPL TP DAILY for 7 Days, #15 GM 0 Refills apply to affected area(s) 07/29/24 Amlodipine Besylate (Amlodipine Besylate) 5 Mg Tablet, 1 TAB PO HS for 30 Days, #30 TAB 0 Refills 07/29/24 Pantoprazole Sodium (Pantoprazole Sodium) 40 Mg Tablet.dr, 1 TAB PO HS for 30 Days, #30 TAB 0 Refills 07/29/24 Metformin HCl (Metformin HCl) 1,000 Mg Tablet, 800 MG PO BID, TAB 07/29/24 [place]-3/Dha/Epa/Fish Oil (Fish Oil 1,000 mg Softgel) 1,000 Mg (120 Mg-180 Mg) Capsule, 1 CAP PO HS for 30 Days, #60 CAP 0 Refills 07/29/24 Mecobalamin (B12 Active) 1,000 Mcg Tab.chew, 2500 MG PO HS, TAB.CHEW 07/29/24 Lutein/Zeaxanthin (Ocuvite Lutein 25-5 mg Softgel) 25 Mg-5 Mg Capsule, 1 CAP PO HS for 30 Days, #30 CAP 0 Refills 07/29/24 Rosuvastatin Calcium (Rosuvastatin Calcium) 20 Mg Tablet, 20 MG PO HS, TAB 07/29/24 Aspirin (ASPIRIN 81MG CHEW TAB) 81 Mg Tab.chew, 1 TAB PO DAILY for 30 Days, #30 TAB 0 Refills 07/29/24 Time spent arranging discharge: 31-60 minutes ATTESTATION BY PHYSICIAN I have seen and examined the patient. I reviewed the documentation, medical decision making, and treatment plan as noted by the mid-level provider above. I agree with the findings and plan of care. MD KOLE Ferrell [facility] Jul 30, 2024 13:36
--- NOTE | 2024-07-30 16:04 | NUR ---
DISCHARGE PT PIV DC'D PT VERBALIZED UNDERSTANDING OF DISCHARGE INSTRUCTIONS PT GATHERED AND TOOK ALL BELONGINGS PT HAD NO FURTHER QUESTIONS AT TIME OF DISCHARGE
== END 2024-07-30 16:15 | disposition home or self-care (01) ==
LOC: EDH 10:24 → INTOOBSV 11:50 → EDHIP 11:50 → OBSVTOIN 11:50 → 3AH 17:45
PROVIDERS: ADMIT Internal Medicine; ATTEND Internal Medicine
DX: G45.9 Transient cerebral ischemic attack, unspecified (principal); I10 Essential (primary) hypertension; E78.5 Hyperlipidemia, unspecified; I63.9 Cerebral infarction, unspecified; R47.01 Aphasia; Z96.611 Presence of right artificial shoulder joint; Z85.831 Personal history of malignant neoplasm of soft tissue; Z79.82 Long term (current) use of aspirin; Z79.84 Long term (current) use of oral hypoglycemic drugs
CPT/HCPCS: 96360; 96361 ×2; 83036; 84443; 82550; 83721; 84484; 80048 ×2; 83880; 85025 ×2; 85610; 85730; 87086 ×2; 87186; 82948; 81001; 36415 ×2; 71045; 70450; 70496; 70498; 70551; 99291; 92522; 92610; 93005; 84145; 93306; 93356; 97161; 97116; J3490; Q9967; G0378 ×2

== ENCOUNTER 2024-08-31 23:44 | Emergency (ER) | payer OTHER, MEDICARE ==
[~2024-08-31] VITALS: Ht 167.6 cm; Wt 93.0 kg
[~2024-08-31 23:44] MED LIST: AMLO-257 PO; ASPI-1005 PO; CLOP-31 PO; KETO15CR2 TP; LEVO250T75 PO; LUTE1CAP5 PO; MECO10005 PO; METF-446 PO; OMEG100033 PO; PANT40TA54 PO; ROSU20TA98 PO
--- NOTE | 2024-09-01 00:54 | ERN ---
ED Note History of Present Illness Stated Complaint: C/O NOSEBLEED ON AND OFF DURING THE DAY Chief Complaint: Nosebleed Time Seen by MD: 11:42 Dictation: This is an [age]-year-old male who presented to the emergency room with a epistaxis off and on during the day. He stated that it started around noon today and he went to [facility] where he was evaluated given a nasal decongestant spray and temporarily by about 4:00 p.m. his nosebleed stopped and he was discharged to home. Patient stated that by about dinner time he started having nosebleed again and hence he came into the emergency room for further evaluation. Patient is on Plavix. No history of any fever chills or rigors no headaches. No known history of any Payal's granulomatosis. Temperature 97.6 pulse 84 respirations 20 blood pressure 135/79 with a pulse oximetry of 96% on room air His chronic medical problems include diabetes mellitus, hypertension, history of hypercholesterolemia and TIA Allergies: Uncoded Allergies: UNKNOWN NAME OF MEDICATION ALERGY (Adverse Reaction, Mild, HALLUCINATIONS, 07/29/24) Home Meds Active Scripts Levofloxacin (Levofloxacin) 250 Mg Tablet, 1 TAB PO DAILY for 7 Days, #7 TAB 0 Refills Prov:REGI SHARIF [facility] 07/30/24 Clopidogrel Bisulfate (Plavix) 75 Mg Tablet, 75 MG PO DAILY, #60 TAB Prov:REGI SHARIF [facility] 07/30/24 Reported Medications Ketoconazole (Ketoconazole) 2 % Cream.gm., 1 APPL TP DAILY for 7 Days, #15 GM 0 Refills apply to affected area(s) 07/29/24 Amlodipine Besylate (Amlodipine Besylate) 5 Mg Tablet, 1 TAB PO HS for 30 Days, #30 TAB 0 Refills 07/29/24 Pantoprazole Sodium (Pantoprazole Sodium) 40 Mg Tablet.dr, 1 TAB PO HS for 30 Days, #30 TAB 0 Refills 07/29/24 Metformin HCl (Metformin HCl) 1,000 Mg Tablet, 800 MG PO BID, TAB 07/29/24 [place]-3/Dha/Epa/Fish Oil (Fish Oil 1,000 mg Softgel) 1,000 Mg (120 Mg-180 Mg) Capsule, 1 CAP PO HS for 30 Days, #60 CAP 0 Refills 07/29/24 Mecobalamin (B12 Active) 1,000 Mcg Tab.chew, 2500 MG PO HS, TAB.CHEW 07/29/24 Lutein/Zeaxanthin (Ocuvite Lutein 25-5 mg Softgel) 25 Mg-5 Mg Capsule, 1 CAP PO HS for 30 Days, #30 CAP 0 Refills 07/29/24 Rosuvastatin Calcium (Rosuvastatin Calcium) 20 Mg Tablet, 20 MG PO HS, TAB 07/29/24 Aspirin (ASPIRIN 81MG CHEW TAB) 81 Mg Tab.chew, 1 TAB PO DAILY for 30 Days, #30 TAB 0 Refills 07/29/24 Past Medical History Past Medical History: Diabetes-Type II, Hypertension, TIA Surgical History: Other Family History: Negative Social History: Negative RN Note Reviewed/Agreed w/PFSH: Yes Review of System Dictation Constitutional: Negative for fever,chills, and weight loss Eyes: Negative for injury, pain,redness, and discharge ENT: Negative for injury,pain or swelling positive for epistaxis Cardiovascular: Negative for chest pain, palpitations, and edema Respiratory: Negative for shortness of breath, cough, and wheezing, Abdomen/GI: Negative for abdominal pain, nausea, vomiting, diarrhea, and constip ation Back: Negative for injury and pain : Negative for injury, bleeding and discharge MS/Extremity: Negative for injury and deformity Skin: Negative for rash, and discoloration Neuro: Negative for headache, weakness, numbness, tingling, and seizure Psych: Negative for suicide ideation, homicidal ideation, and hallucinations Initial Vital Sign VS Vital Signs Date Time Temp Pulse Resp B/P (MAP) Pulse Ox O2 Delivery O2 Flow Rate FiO2 08/31/24 23:46 97.5 84 20 135/79 96 Room Air 09/01/24 01:39 0 21 Physical Exam Dictation General: awake, alert, NAD elderly male very pleasant hard of hearing Head/Face: Normocephalic, atraumatic Eyes: PERRL, EOMI, vision at baseline ENT: oral cavity clear, TMs clear, no signs of infection nasal pressure was in place old blood on his shirt Neck: Trachea midline, supple, no nuchal rigidity Cardiovascular: RRR, normal S1/S2, No MRGs, no JVD Respiratory: CTAB, no respiratory distress, No rales or wheezes Abdomen: Soft, non-tender, non-distended, normal bowel sounds, no guarding or rebound. Skin: Warm, dry, normal turgor, no rash MS/Extremity: Pulses equal, no cyanosis, neurovascular intact, FROM Neuro: COAx4, GCS 15, strength 5/5, CN 2-12 intact, normal cerebellar exam, normal gait, Psych: Normal behavior, mood, and affect normal Extremities-trace edema without any palpable cords, Homans sign is negative Results (Laboratory/Radiology) Laboratory/Radiology Laboratory Tests Test 09/01/24 01:04 White Blood Count 6.3 K/uL (4.8-10.8) Red Blood Count 4.11 MIL/uL (4.50-6.20) L Hemoglobin 12.0 g/dL (14.0-18.0) L Hematocrit 36.3 % (42-54) L Mean Corpuscular Volume 88.3 fL (79-99) Mean Corpuscular Hemoglobin 29.2 pg (27.0-33.0) Mean Corpuscular Hemoglobin Concent 33.1 g/dL (32.0-36.0) Red Cell Distribution Width 13.8 % (11.0-15.5) Platelet Count 163 K/uL (130-400) Mean Platelet Volume 10.2 fL (7.5-10.5) Immature Granulocyte % (Auto) 0.2 % (0-1) Neutrophils (%) (Auto) 61.3 % (40.0-77.0) Lymphocytes (%) (Auto) 23.7 % (21.0-51.0) Monocytes (%) (Auto) 10.5 % (3.0-13.0) Eosinophils (%) (Auto) 4.0 % (0.0-8.0) Basophils (%) (Auto) 0.3 % (0.0-5.0) Neutrophils # (Auto) 3.9 K/uL (1.8-7.7) Lymphocytes # (Auto) 1.5 K/uL (1.0-4.8) Monocytes # (Auto) 0.7 K/uL (0.1-1.0) Eosinophils # (Auto) 0.25 K/uL (0.00-0.70) Basophils # (Auto) 0.02 K/uL (0.00-0.20) Absolute Immature Granulocyte (auto 0.01 K/uL (0-1) Nucleated Red Blood Cells 0.0 % (0.0-0.19) Sodium Level 141 mmol/L (136-145) Potassium Level 4.1 mmol/L (3.5-5.1) Chloride Level 106 mmol/L (101-111) Carbon Dioxide Level 29 mmol/L (21-32) Blood Urea Nitrogen 26 mg/dL (7-18) H Creatinine 1.2 mg/dL (0.5-1.3) Glomerular Filtration Rate Calc 60 mL/min (>90) Random Glucose 166 mg/dL (70-105) H Total Calcium 8.9 mg/dL (8.5-10.1) Labs Reviewed?: Yes ED Course ED Course Orders Procedure Category Date Status Time Oxymetazolone Hcl PHA 09/01/24 Complete [place] (Afrin) 01:00 Cbc With Differential LAB 09/01/24 Complete 00:59 Basic Metabolic Panel LAB 09/01/24 Complete 00:59 Current Medications Medications (Trade) Dose Ordered Sig/Laura Route PRN Reason Start Time Stop Time Status Last Admin Dose Admin Oxymetazoline HCl (AFrin) 2 sprays ONCE ONCE EN 09/01/24 01:00 09/01/24 01:01 DC 09/01/24 01:11 Vital Signs Date Time Temp Pulse Resp B/P (MAP) Pulse Ox O2 Delivery O2 Flow Rate FiO2 09/01/24 04:18 98.4 67 18 139/74 96 Room Air* 0 21 09/01/24 01:39 75 18 139/74 96 Room Air* 0 21 08/31/24 23:46 97.5 84 20 135/79 96 Room Air We will perform diagnostic labs, and administer medications according to the fred valenzuela's complaint. Once the results are available, will review and personally interpreted the labs to rule out any acute life-threatening emergency the trach require immediate intervention and treatment. I will then re-evaluate the patient after treatment and diagnostic exams have return to determine whether the patient requires any further testing, can safely be discharged home or need further admission to hospital for additional treatment and evaluation. Reviewed labs CBC showed a white count of 6.3 hemoglobin of 12 platelets 163, BNP 7 showed a BUN and creatinine of 26 and 1.2. Patient removed his nasal pressure device and he started having large amounts of epistaxis again. Rhino rockets were introduced and inserted through both nares. Epistaxis stoppe d immediately. Patient was discharged to home after another 1 hour of monitoring with the rhino rockets and he was instructed to return to the emergency room within 24 hours to get them removed. He has already taken Plavix tonight and I asked him to hold it for tomorrow Medical Decision Making MDM MDM: Differential diagnosis: Simple epistaxis, hypertension related, Payal's granulomatosis, ulcerations, bleeding vessel Rationale: Tests considered and ordered secondary to shared decision making include: Previous outside records reviewed: Old ER visits. Risk of complication and/or morbidity or mortality of patient management: None Medications-Per medication reconciliation Need for hospitalization: Patient does not meet criteria for hospitalization. Need for emergency major/minor surgery: No There are no social concerns with this patient. Prescription drug management Prescriptions will include symptomatic care Patient's prior external medical records from other ER visits were reviewed by me as indicated. Prior testing and results from previous visits were reviewed. Prior tests were taken into account with medical decision making and resource utilization, independent historian/historians were used to obtain complete medical history. I independently interpreted the test that were performed, results were reviewed by me and considered findings on radiology if ordered. Medical management and examination interpretation discussions were had by me with other qualified healthcare professionals as indicated for the patient's care. Procedure Additional Procedures: other Progress Bilateral rhino rocket placement The device was soaked in sterile water for about 30 seconds. It was inserted into the patient's nostril parallel to the septal floor bilaterally. The posterior balloon was inflated as well as the anterior balloon. Both the boat pilot cuffs were firm and the syringe was removed from the inflation valve. The casandra ce was pulled gently anteriorly to ensure the pressure on the bleeding site once the device was secure and the boat pilot cuff was firm and after observation boat pilot cuff was taped to the cheek. Recommendations-removal of the rhino rocket with the next 24-72 hours Problem List Problem List: (1) Epistaxis DX & DISP Disposition: Discharge Departure Impression: Primary Impression: Epistaxis Condition: Stable Additional Instructions: Patient and the caregiver have been informed of all the diagnostic tests and the imaging conducted during the today's visit to the emergency room and has ve rbalized understanding of the results I have personally reviewed and interpreted all diagnostic exams performed here in the ER today as well as the vital signs documented by the nursing staff. The patient is now being discharged to home and should follow up with the primary care physician or the specialist as directed by the ER staff. Follow-up with primary care provider in 1 to 2 days. Take medications as directed here in the emergency room. Okay to continue home medications unless otherwise discussed during your visit in the emergency room today. Return to your nearest emergency room if symptoms worsen or if there is no improvement. Call 911 if you need immediate assistance. Take Tylenol or Motrin [id number] as needed and if no contraindications are present. Increase oral hydration. A wound culture or urine culture was ordered here in the emergency room department please follow-up with primary care provider and advise them to get repeat ports from our facility. If you had any Karson wrap/splints that were applied here, please do not remove them until you see your primary care or specialty. Patient instructed to come back on which is about 24 hours to get the rhino rockets removed. Referrals: SELF,REFERRAL (PCP) JUSTINA GUIDRY MD Sep 01, 2024 00:54
[2024-09-01] MEDS: OXYmetazolone HCL SPRAY 15 ML BOTTLE EN ONE (01:11)
[2024-09-01 01:15] LABS: BASOPHILS # (AUTO) 0.02 K/uL (0.00-0.20); BASOPHILS % (AUTO) 0.3 % (0.0-5.0); EOSINOPHILS # (AUTO) 0.25 K/uL (0.00-0.70); HEMATOCRIT 36.3 % (42-54); IMMATURE GRANULOCYTE ABSOLUTE 0.01 K/uL (0-1); LYMPHOCYTES # (AUTO) 1.5 K/uL (1.0-4.8); LYMPHOCYTES % (AUTO) 23.7 % (21.0-51.0); MEAN CORPUSCULAR HEMOGLOBIN 29.2 pg (27.0-33.0); MEAN CORPUSCULAR HGB CONC 33.1 g/dL (32.0-36.0); MEAN CORPUSCULAR VOLUME 88.3 fL (79-99); MONOCYTES # (AUTO) 0.7 K/uL (0.1-1.0); MONOCYTES % (AUTO) 10.5 % (3.0-13.0); NEUTROPHILS # (AUTO) 3.9 K/uL (1.8-7.7); NEUTROPHILS % (AUTO) 61.3 % (40.0-77.0); PLATELET COUNT (AUTO) 163 K/uL (130-400); RED BLOOD CELL COUNT(AUTO) 4.11 MIL/uL (4.50-6.20); RED CELL DISTRIBUTION WIDTH 13.8 % (11.0-15.5); WHITE BLOOD COUNT (AUTO) 6.3 K/uL (4.8-10.8)
[2024-09-01 01:25] LABS: CREATININE 1.2 mg/dL (0.5-1.3); POTASSIUM 4.1 mmol/L (3.5-5.1)
[2024-09-01 04:18] VITALS: BP 139/74; PULSE 67; RESP 18; TEMP 98.4; O2SAT 96
== END 2024-09-01 04:19 | disposition home or self-care (01) ==
LOC: EDH 23:44
DX: R04.0 Epistaxis (principal); E11.9 Type 2 diabetes mellitus without complications; I10 Essential (primary) hypertension; Z79.02 Long term (current) use of antithrombotics/antiplatelets; Z79.82 Long term (current) use of aspirin; Z79.84 Long term (current) use of oral hypoglycemic drugs; Z86.73 Personal history of transient ischemic attack (TIA), and cerebral infarction without residual deficits; Z98.890 Other specified postprocedural states
CPT/HCPCS: 30905; 36415; 80048; 85025; 99284

== ENCOUNTER 2024-09-02 10:09 | Emergency (ER) | payer OTHER, MEDICARE ==
[~2024-09-02] VITALS: Ht 177.8 cm; Wt 93.0 kg
[2024-09-02 10:21] VITALS: TEMP 98.8
--- NOTE | 2024-09-02 10:29 | ERN ---
ED Note History of Present Illness Stated Complaint: NASAL PACKING REMOVAL Chief Complaint: Nose Foreign Body/Nares Time Seen by MD: 10:12 Dictation: PATIENT IS AN 83-YEAR-OLD MALE HERE ON PLAVIX WITH A HISTORY OF A LEFT EPISTAXIS. WAS SEEN AT THE [facility] ON 08/31 AND THEN ULTIMATELY ENDED UP AT [facility] WITH PACKING OF THE RHINO TO THE LEFT BEYER. HE HAD INSTRUCTIONS ON HIS DISCHARGED TO RETURN TO THE EMERGENCY ROOM TODAY FOR REMOVAL OF THE PACKING. STATES THE [facility] WHEN HE CALLED HIM STATED THAT THEY DID NOT HAVE AN ENT AND REFERRED HIM BACK TO [facility]. Allergies: Coded Allergies: levofloxacin (Unverified Allergy, Unknown, HALLUCINATIONS, 09/02/24) Home Meds Active Scripts Levofloxacin (Levofloxacin) 250 Mg Tablet, 1 TAB PO DAILY for 7 Days, #7 TAB 0 Refills Prov:REGI SHARIF [facility] 07/30/24 Clopidogrel Bisulfate (Plavix) 75 Mg Tablet, 75 MG PO DAILY, #60 TAB Prov:[facility] 07/30/24 Reported Medications Ketoconazole (Ketoconazole) 2 % Cream.gm., 1 APPL TP DAILY for 7 Days, #15 GM 0 Refills apply to affected area(s) 07/29/24 Amlodipine Besylate (Amlodipine Besylate) 5 Mg Tablet, 1 TAB PO HS for 30 Days, #30 TAB 0 Refills 07/29/24 Pantoprazole Sodium (Pantoprazole Sodium) 40 Mg Tablet.dr, 1 TAB PO HS for 30 Days, #30 TAB 0 Refills 07/29/24 Metformin HCl (Metformin HCl) 1,000 Mg Tablet, 800 MG PO BID, TAB 07/29/24 [place]-3/Dha/Epa/Fish Oil (Fish Oil 1,000 mg Softgel) 1,000 Mg (120 Mg-180 Mg) Capsule, 1 CAP PO HS for 30 Days, #60 CAP 0 Refills 07/29/24 Mecobalamin (B12 Active) 1,000 Mcg Tab.chew, 2500 MG PO HS, TAB.CHEW 07/29/24 Lutein/Zeaxanthin (Ocuvite Lutein 25-5 mg Softgel) 25 Mg-5 Mg Capsule, 1 CAP PO HS for 30 Days, #30 CAP 0 Refills 07/29/24 Rosuvastatin Calcium (Rosuvastatin Calcium) 20 Mg Tablet, 20 MG PO HS, TAB 07/29/24 Aspirin (ASPIRIN 81MG CHEW TAB) 81 Mg Tab.chew, 1 TAB PO DAILY for 30 Days, #30 TAB 0 Refills 07/29/24 Past Medical History Past Medical History: Diabetes-Type II, Hypertension, TIA Surgical History: Other PSYCH History: no pertinent psych hx Family History: Negative Social History: Negative RN Note Reviewed/Agreed w/PFSH: Yes Review of System Dictation CONSTITUTIONAL: NEGATIVE EXCEPT FOR HPI HEAD/FACE: NEGATIVE EXCEPT FOR HPI EENT: NEGATIVE EXCEPT FOR HPI LEFT EPISTAXIS RESPIRATORY: NEGATIVE EXCEPT FOR HPI GASTROINTESTINAL/ABDOMINAL: NEGATIVE EXCEPT FOR HPI GENITOURINARY: NEGATIVE EXCEPT FOR HPI MUSCULOSKELETAL: NEGATIVE EXCEPT FOR HPI INTEGUMENTARY: NEGATIVE EXCEPT FOR HPI NEUROLOGICAL/PSYCH: NEGATIVE EXCEPT FOR HPI HEMATOLOGIC/LYMPHATIC: NEGATIVE EXCEPT FOR HPI ALL SYSTEMS NEGATIVE, EXCEPT NOTED ABOVE. 13 POINT REVIEW OF SYSTEMS ASSESSED AND ALL NEGATIVE EXCEPT FOR ABOVE. Initial Vital Sign VS Vital Signs Date Time Temp Pulse Resp B/P (MAP) Pulse Ox O2 Delivery O2 Flow Rate FiO2 09/02/24 10:11 98.1 75 16 138/78 98 Room Air* 0 21 Physical Exam Dictation VITAL SIGNS REVIEWED GENERAL APPEARANCE: ALERT, ORIENTED X 3, NO ACUTE DISTRESS, WELL DEVELOPED, NOURISHED. HEAD AND FACE: NON-TRAUMATIC. EYES: PERRL, PINK CONJUNCTIVAS, EYELID NO TRAUMA, ANTERIOR CHAMBER WITH ARCUS SENILIS. EARS: PINNAS INTACT AND NO SIGNS OF TRAUMA OR ERYTHEMA EAR CANALS CLEAR AND NO DISCHARGE TM NO ERYTHEMA NOSE: NO DISCHARGE, NO BLEEDING. RHINO ROCKET TO LEFT NARES. OROPHARYNX: MOUTH NORMAL, TONGUE PINK, PHARYNX CLEAR,NO ERYTHEMA, TONSILS NO EXUDATES, NO ABSCESSES NOTED, MUCOUS MEMBRANE MOIST NECK: SUPPLE, NON-TENDER, NO THYROMEGALY, NO MASSES, NO JVD, NO BRUITS BREAST:DEFERRED CHEST:NO TENDERNESS, NO CREPITUS, NO PARADOXICAL MOVEMENT, NO RETRACTIONS LUNGS:CLEAR, WELL-VENTILATED, SYMMETRIC, NO RALES, NO WHEEZING, NO RHONCHI, NO STRIDOR, GOOD BREATH SOUNDS BILATERALLY HEART: REGULAR RATE, REGULAR RHYTHM, NO MURMUR, NO GALLOPS VASCULAR: NO PERIPHERAL EDEMA, ABDOMEN: SOFT, POSITIVE BOWEL SOUNDS, NONDISTENDED, NO GUARDING, NONTENDER, NO REBOUND, NO MASSES NO HEPATOMEGALY, NO SPLENOMEGALY, NO GRECO'S SIGN, NO HERNIAS. RECTAL: DEFERRED GENITAL: DEFERRED NEUROLOGICAL: NORMAL SPEECH, MOTOR FUNCTION INTACT, SENSORY FUNCTION INTACT MUSCULOSKELETAL: NECK NONTENDER, FULL RANGE OF MOTION, BACK NONTENDER, FULL RANGE OF MOTION, EXTREMITIES: NONTENDER, FULL RANGE OF MOTION SKIN: COLOR PINK, DRY, NO TURGOR, NO RASH, NO LACERATIONS, NO ABRASIONS, NO CONTUSIONS. LYMPHATIC: DEFERRED Results (Laboratory/Radiology) Labs Reviewed?: Yes ED Course ED Course Vital Signs Date Time Temp Pulse Resp B/P (MAP) Pulse Ox O2 Delivery O2 Flow Rate FiO2 09/02/24 10:21 98.8 74 20 136/75 98 Room Air* 0 21 09/02/24 10:12 98.1 75 16 138/78 98 Room Air 0 09/02/24 10:11 98.1 75 16 138/78 98 Room Air* 0 21 1056 PATIENT REEXAMINED AND NO BLEEDING IN BILATERAL NARES OR OROPHARYNX. PATIENT INSTRUCTED TO CONTINUE ALL MEDS AND TREATMENTS AT HOME, RETURN TO THE EMERGENCY ROOM IF REBLEED. HE SAID HE WAS GOING TO GO DIRECTLY TO THE [facility] FOR FURTHER FOLLOW UP TODAY Medical Decision Making MDM MEDICAL DISCHARGE MAKING WAS BASED ON ENCOUNTER FOR REMOVAL OF NASAL PACKING. PACKING WAS REMOVED AND PATIENT WAS OBSERVED FOR 30 MINUTES WITH NO FURTHER BLEEDING. DISCHARGED HOME WITH THE INSTRUCTIONS TO NOT BLOW HIS NOSE AND NO PICKING NOSE FOR FEAR OF DISLODGING CLOT HE SAID HE WOULD FOLLOW UP WITH THE [facility] Procedure Procedure Dictation: 1025/RHINO ROCKET REMOVED. NO ACTIVE BLEEDING NOTED IN OROPHARYNX OR LEFT POSTERIOR BEYER. PATIENT WILL BE OBSERVED APPROXIMATE 30 MINUTES BEFORE BEING DISCHARGED. ADDITIONALLY HE WAS INSTRUCTED IF THERE IS A REBLEED, HE WOULD BE REPACKED AND I WOULD TRANSFER HIM TO A HIGHER LEVEL OF CARE THAT WOULD INCLUDE ENT DX & DISP Disposition: Discharge Departure Impression: Primary Impression: Encounter for removal of nasal packing Condition: Stable Additional Instructions: FOLLOW-UP WITH PRIMARY CARE PROVIDER IN 1 TO 2 DAYS. TAKE MEDICATIONS DIRECTED HERE IN THE EMERGENCY ROOM. OKAY TO CONTINUE HOME MEDICATIONS UNLESS OTHERWISE DISCUSSED DURING YOUR VISIT IN THE EMERGENCY ROOM TODAY. RETURN TO YOUR NEAREST EMERGENCY ROOM IF SYMPTOMS WORSEN OR IF THERE IS NO IMPROVEMENT. CALL 911 IF YOU NEED IMMEDIATE ASSISTANCE. TAKE TYLENOL OR MOTRIN [id number] NEEDED AND IF NO CONTRAINDICATIONS ARE PRESENT. INCREASE ORAL HYDRATION. A WOUND CULTURE OR URINE CULTURE WAS ORDERED HERE IN THE EMERGENCY ROOM DEPARTMENT PLEASE FOLLOW-UP WITH PRIMARY CARE PROVIDER AND ADVISE THEM TO GET REPEAT PORTS FROM OUR FACILITY. IF YOU HAD ANY COLTON WRAP/SPLINTS THAT WERE APPLIED HERE, PLEASE DO NOT REMOVE THEM UNTIL YOU SEE YOUR PRIMARY CARE OR SPECIALTY. GENTLY WIPE NOSE ON THE OUTSIDE OF CLEAR DISCHARGE. DO NOT BLOW NOSE IF POSSIBLE AND SEE YOUR PRIMARY CARE DOCTOR FOR FOLLOW UP Referrals: SELF,REFERRAL (PCP) Time of Disposition: 10:58 I have reviewed the case, and I agree with, Diagnosis and Plan LACY BAUMANN NP Sep 02, 2024 10:29
[2024-09-02 11:01] VITALS: BP 131/71; PULSE 71; RESP 20; O2SAT 98
== END 2024-09-02 11:07 | disposition home or self-care (01) ==
LOC: EDH 10:09
DX: R04.0 Epistaxis (principal); E11.9 Type 2 diabetes mellitus without complications; I10 Essential (primary) hypertension; Z79.02 Long term (current) use of antithrombotics/antiplatelets; Z48.00 Encounter for change or removal of nonsurgical wound dressing; Z79.82 Long term (current) use of aspirin; Z79.84 Long term (current) use of oral hypoglycemic drugs; Z86.73 Personal history of transient ischemic attack (TIA), and cerebral infarction without residual deficits; Z88.1 Allergy status to other antibiotic agents
CPT/HCPCS: 99282

== ENCOUNTER 2024-09-05 21:27 | Emergency (ER) | payer OTHER, MEDICARE ==
[~2024-09-05] VITALS: Ht 177.8 cm; Wt 96.6 kg
[2024-09-05] MEDS: TRANEXAMIC ACID 1000MG/10ML TP STA (22:19)
--- NOTE | 2024-09-05 22:40 | ERN ---
General Chief Complaint: Nosebleed Stated Complaint: CONTINOUS NOSEBLEED Time Seen by MD: 21:33 History of Present Illness Initial Comments 83-year-old male who presents for nosebleed. Patient reports that he started Plavix about a week ago. Since then he has had on and off nosebleeds. He actually came in here a few days ago and required a rhino rocket for 24 hours. The bleeding had stopped until earlier this evening when he blew his nose. He denies any other bleeding, no melena, no dizziness or other symptom. Allergies: Coded Allergies: levofloxacin (Unverified Allergy, Unknown, HALLUCINATIONS, 09/02/24) Home Meds Active Scripts Levofloxacin (Levofloxacin) 250 Mg Tablet, 1 TAB PO DAILY for 7 Days, #7 TAB 0 Refills Prov:REGI SHARIF SLAG EXPANDER 07/30/24 Clopidogrel Bisulfate (Plavix) 75 Mg Tablet, 75 MG PO DAILY, #60 TAB Prov:REGI SHARIF SLAG EXPANDER 07/30/24 Reported Medications Ketoconazole (Ketoconazole) 2 % Cream.gm., 1 APPL TP DAILY for 7 Days, #15 GM 0 Refills apply to affected area(s) 07/29/24 Amlodipine Besylate (Amlodipine Besylate) 5 Mg Tablet, 1 TAB PO HS for 30 Days, #30 TAB 0 Refills 07/29/24 Pantoprazole Sodium (Pantoprazole Sodium) 40 Mg Tablet.dr, 1 TAB PO HS for 30 Days, #30 TAB 0 Refills 07/29/24 Metformin HCl (Metformin HCl) 1,000 Mg Tablet, 800 MG PO BID, TAB 07/29/24 [place]-3/Dha/Epa/Fish Oil (Fish Oil 1,000 mg Softgel) 1,000 Mg (120 Mg-180 Mg) Capsule, 1 CAP PO HS for 30 Days, #60 CAP 0 Refills 07/29/24 Mecobalamin (B12 Active) 1,000 Mcg Tab.chew, 2500 MG PO HS, TAB.CHEW 07/29/24 Lutein/Zeaxanthin (Ocuvite Lutein 25-5 mg Softgel) 25 Mg-5 Mg Capsule, 1 CAP PO HS for 30 Days, #30 CAP 0 Refills 07/29/24 Rosuvastatin Calcium (Rosuvastatin Calcium) 20 Mg Tablet, 20 MG PO HS, TAB 07/29/24 Aspirin (ASPIRIN 81MG CHEW TAB) 81 Mg Tab.chew, 1 TAB PO DAILY for 30 Days, #30 TAB 0 Refills 07/29/24 Past Medical History Past Medical History: Diabetes-Type II, Hypertension, TIA Past Surgical History: None Family History Family History: Negative Social History Social History: Negative ROS Dictation CONSTITUTIONAL: No chills, no fever, no weakness, no diaphoresis, no malaise. HEAD/FACE: No signs of trauma. EENT: Nosebleed. RESPIRATORY: No cough, no orthopnea, no SOB, no stridor, no wheezing. CARDIOVASCULAR: No chest pain, no edema, no palpitations, no syncope. GASTROINTESTINAL/ABDOMINAL: No abdominal pain, no constipation, no diarrhea, no nausea, no vomiting. GENITOURINARY: No abnormal discharge, no dysuria, no frequent urination, no hematuria. No complaints of pain in the genitals. MUSCULOSKELETAL: No back pain, no gout, no joint pain, no joint swelling, no muscle pain, no muscle stiffness, no neck pain. INTEGUMENTARY: No change in color, no change in hair/nails, no dryness, no lesion, no lumps, no rash. NEUROLOGICAL/PSYCH: No anxiety, not depressed, no emotional problem, no headache, no numbness, no pre-existing deficit, no history of seizures, no tremors, no weakness. HEMATOLOGIC/LYMPHATIC: Not anemic, no history of blood clots, no apparent bleeding, no bruising, glands not swollen. All Systems Negative, Except as Noted. Physical Exam Physical Exam Dictation VITAL SIGNS: Reviewed. GENERAL APPEARANCE: Alert, oriented x3, no acute distress HEAD AND FACE: Non-traumatic. EYES: PERRL, pink conjunctivas, eyelid no trauma, anterior chamber clear. EARS: Pinnas intact and no signs of trauma or erythema. Ear canals clear and no discharge. TMs no erythema. Nosebleed bilateral nose OROPHARYNX: Mouth normal, teeth no caries, tongue pink. Pharynx clear, no erythema. Tonsils no exudates, no abscesses noted. Mucous membrane moist. NECK: Supple, non-tender, no thyromegaly, no masses, no JVD, no bruits. BREAST: Deferred. CHEST: No tenderness, no crepitus, no paradoxical movement, no retractions. LUNGS: Clear, well-ventilated, symmetric, no rales, no wheezing, no rhonchi, no stridor, good breath sounds bilaterally. HEART: Regular rate, regular rhythm, no murmur, no gallops. VASCULAR: No peripheral edema. ABDOMEN: Soft, positive bowel sounds, nondistended, no guarding, nontender, no rebound, no masses no hepatomegaly, no splenomegaly, no Cabrera's sign, no hernias. RECTAL: Deferred. GENITAL: Deferred. NEUROLOGICAL: Normal speech, gross motor function intact, gross sensory function intact. MUSCULOSKELETAL: Neck nontender, full range of motion, back nontender, full range of motion. EXTREMITIES: Nontender, full range of motion. SKIN: Color pink, dry, no turgor, no rash, no lacerations, no abrasions, no contusions. LYMPHATICS: Deferred. MDM CC: Nosebleed Historian: Patient Comorbidities: Advanced age, blood thinners Differential diagnosis one epistaxis anterior versus posterior bleed No signs of anemia Vital signs are stable Clinically he is nontoxic Placed bilateral rhino rockets. Bleeding stopped. Discussed the plan with the patient. He was follow up with his primary doctor in 36 hours. We will recommend that he keep the rhino rockets in until then. Otherwise you can return to the emergency department for removal. Patient agrees with the plan ED Course Orders Procedure Category Date Status Time Tranexamic Acid PHA 09/05/24 Complete (Cyklokapron) 21:54 Current Medications Medications (Trade) Dose Ordered Sig/Laura Route PRN Reason Start Time Stop Time Status Last Admin Dose Admin Tranexamic Acid (Cyklokapron) 1,000 mg ONCE STAT TP 09/05/24 21:54 09/05/24 21:55 DC 09/05/24 22:19 Vital Signs Date Time Temp Pulse Resp B/P (MAP) Pulse Ox O2 Delivery O2 Flow Rate FiO2 09/05/24 22:44 98.1 75 18 157/80 95 Room Air* 0 21 09/05/24 21:54 98.1 75 18 100/69 94 Room Air* 0 21 09/05/24 21:28 98.1 81 16 189/79 97 Room Air Procedure Dictation Performed by:WORTH Authorized by: pateint Consent: Verbal consent obtained. Risks and benefits: risks, benefits and alternatives were discussed Consent given by: patient Patient understanding: patient states understanding of the procedure being performed Required items: devices, and special equipment available Patient identity confirmed: arm band Time out: Immediately prior to procedure a "time out" was called to verify the correct patient, procedure, equipment, computer network support specialist and site/side marked as required. Treatment site: right anterior and left anterior Repair method: nasal balloon Post-procedure assessment: bleeding stopped Treatment complexity: simple Patient tolerance: Patient tolerated the procedure well with no immediate complications DX & DISP Disposition: Discharge Departure Impression: Primary Impression: Epistaxis Condition: Stable Referrals: SELF,REFERRAL (PCP) WILLIS PRATT DO Sep 05, 2024 22:40
[2024-09-05 22:44] VITALS: BP 157/80; PULSE 75; RESP 18; TEMP 98.1; O2SAT 95
== END 2024-09-05 22:55 | disposition home or self-care (01) ==
LOC: EDH 21:27
DX: R04.0 Epistaxis (principal); E11.9 Type 2 diabetes mellitus without complications; I10 Essential (primary) hypertension; Z79.02 Long term (current) use of antithrombotics/antiplatelets; Z79.82 Long term (current) use of aspirin; Z79.84 Long term (current) use of oral hypoglycemic drugs; Z86.73 Personal history of transient ischemic attack (TIA), and cerebral infarction without residual deficits; Z88.1 Allergy status to other antibiotic agents
CPT/HCPCS: 99284; 30901; J3490

== ENCOUNTER 2024-09-07 09:41 | Emergency (ER) | payer OTHER, MEDICARE ==
[~2024-09-07] VITALS: Ht 177.8 cm; Wt 93.4 kg
--- NOTE | 2024-09-07 10:04 | ERN ---
ED Note History of Present Illness Stated Complaint: NOSE BLEED/ REMOVE NASAL PLUG Chief Complaint: Nosebleed Time Seen by MD: 09:46 Dictation: PATIENT IS AN 83-YEAR-OLD RETIRED HERE FROM [facility] [employer] FOR REMOVAL OF NASAL ROCKETS THAT HE HAD BEEN PLACED ON 09/05. HE HAS ALREADY BEEN HERE TWICE FOR THE SAME REASON FOR RECURRENT EPISTAXIS AND STATES TODAY, HE WAS REFERRED TO AN ENT HOWEVER HE IS NOT SURE OF THE DATE OF THE APPOINTMENT BUT THE HE WAS ISSUED A VOUCHER. NO ACTIVE BLEEDING AT THIS TIME. Allergies: Coded Allergies: levofloxacin (Unverified Allergy, Unknown, HALLUCINATIONS, 09/02/24) Home Meds Active Scripts Levofloxacin (Levofloxacin) 250 Mg Tablet, 1 TAB PO DAILY for 7 Days, #7 TAB 0 Refills Prov:REGI SHARIF CRAB STEAMER 07/30/24 Clopidogrel Bisulfate (Plavix) 75 Mg Tablet, 75 MG PO DAILY, #60 TAB Prov:REGI SHARIF CRAB STEAMER 07/30/24 Reported Medications Ketoconazole (Ketoconazole) 2 % Cream.gm., 1 APPL TP DAILY for 7 Days, #15 GM 0 Refills apply to affected area(s) 07/29/24 Amlodipine Besylate (Amlodipine Besylate) 5 Mg Tablet, 1 TAB PO HS for 30 Days, #30 TAB 0 Refills 07/29/24 Pantoprazole Sodium (Pantoprazole Sodium) 40 Mg Tablet.dr, 1 TAB PO HS for 30 Days, #30 TAB 0 Refills 07/29/24 Metformin HCl (Metformin HCl) 1,000 Mg Tablet, 800 MG PO BID, TAB 07/29/24 [place]-3/Dha/Epa/Fish Oil (Fish Oil 1,000 mg Softgel) 1,000 Mg (120 Mg-180 Mg) Capsule, 1 CAP PO HS for 30 Days, #60 CAP 0 Refills 07/29/24 Mecobalamin (B12 Active) 1,000 Mcg Tab.chew, 2500 MG PO HS, TAB.CHEW 07/29/24 Lutein/Zeaxanthin (Ocuvite Lutein 25-5 mg Softgel) 25 Mg-5 Mg Capsule, 1 CAP PO HS for 30 Days, #30 CAP 0 Refills 07/29/24 Rosuvastatin Calcium (Rosuvastatin Calcium) 20 Mg Tablet, 20 MG PO HS, TAB 07/29/24 Aspirin (ASPIRIN 81MG CHEW TAB) 81 Mg Tab.chew, 1 TAB PO DAILY for 30 Days, #30 TAB 0 Refills 07/29/24 Past Medical History Past Medical History: Diabetes-Type II, High Cholesterol Surgical History: Other Surgical History Other: FACIAL S, RT LEG CA SX, R SHOULDER SX Family History: Negative Social History: Negative RN Note Reviewed/Agreed w/PFSH: Yes Review of System Dictation CONSTITUTIONAL: NEGATIVE EXCEPT FOR HPI HEAD/FACE: NEGATIVE EXCEPT FOR HPI EENT: NEGATIVE EXCEPT FOR HPI BILATERAL RHINO ROCKETS RESPIRATORY: NEGATIVE EXCEPT FOR HPI GASTROINTESTINAL/ABDOMINAL: NEGATIVE EXCEPT FOR HPI GENITOURINARY: NEGATIVE EXCEPT FOR HPI MUSCULOSKELETAL: NEGATIVE EXCEPT FOR HPI INTEGUMENTARY: NEGATIVE EXCEPT FOR HPI NEUROLOGICAL/PSYCH: NEGATIVE EXCEPT FOR HPI HEMATOLOGIC/LYMPHATIC: NEGATIVE EXCEPT FOR HPI ALL SYSTEMS NEGATIVE, EXCEPT NOTED ABOVE. 13 POINT REVIEW OF SYSTEMS ASSESSED AND ALL NEGATIVE EXCEPT FOR ABOVE. Initial Vital Sign VS Vital Signs Date Time Temp Pulse Resp B/P (MAP) Pulse Ox O2 Delivery O2 Flow Rate FiO2 09/07/24 09:46 97.5 80 20 152/89 94 Room Air Physical Exam Dictation VITAL SIGNS REVIEWED GENERAL APPEARANCE: ALERT, ORIENTED X 3, NO ACUTE DISTRESS, WELL DEVELOPED, NOURISHED. HEAD AND FACE: NON-TRAUMATIC. EYES: PERRL, PINK CONJUNCTIVAS, EYELID NO TRAUMA, ANTERIOR CHAMBER WITH ARCUS SENILIS. EARS: PINNAS INTACT AND NO SIGNS OF TRAUMA OR ERYTHEMA EAR CANALS CLEAR AND NO DISCHARGE TM NO ERYTHEMA NOSE: NO DISCHARGE, NO BLEEDING. BILATERAL RHINO ROCKETS IN PLACE. OROPHARYNX: MOUTH NORMAL, TONGUE PINK, NO BLOOD NOTED IN OROPHARYNX PHARYNX CLEAR,NO ERYTHEMA, TONSILS NO EXUDATES, NO ABSCESSES NOTED, MUCOUS MEMBRANE MOIST NECK: SUPPLE, NON-TENDER, NO THYROMEGALY, NO MASSES, NO JVD, NO BRUITS BREAST:DEFERRED CHEST:NO TENDERNESS, NO CREPITUS, NO PARADOXICAL MOVEMENT, NO RETRACTIONS LUNGS:CLEAR, WELL-VENTILATED, SYMMETRIC, NO RALES, NO WHEEZING, NO RHONCHI, NO STRIDOR, GOOD BREATH SOUNDS BILATERALLY HEART: REGULAR RATE, REGULAR RHYTHM, NO MURMUR, NO GALLOPS VASCULAR: NO PERIPHERAL EDEMA, ABDOMEN: SOFT, POSITIVE BOWEL SOUNDS, NONDISTENDED, NO GUARDING, NONTENDER, NO REBOUND, NO MASSES NO HEPATOMEGALY, NO SPLENOMEGALY, NO GRECO'S SIGN, NO HERNIAS. RECTAL: DEFERRED GENITAL: DEFERRED NEUROLOGICAL: NORMAL SPEECH, MOTOR FUNCTION INTACT, SENSORY FUNCTION INTACT MUSCULOSKELETAL: NECK NONTENDER, FULL RANGE OF MOTION, BACK NONTENDER, FULL RANGE OF MOTION, EXTREMITIES: NONTENDER, FULL RANGE OF MOTION SKIN: COLOR PINK, DRY, NO TURGOR, NO RASH, NO LACERATIONS, NO ABRASIONS, NO CONTUSIONS. LYMPHATIC: DEFERRED Results (Laboratory/Radiology) Labs Reviewed?: Yes ED Course ED Course Vital Signs Date Time Temp Pulse Resp B/P (MAP) Pulse Ox O2 Delivery O2 Flow Rate FiO2 09/07/24 09:46 97.5 80 20 152/89 94 Room Air Medical Decision Making MDM MEDICAL DECISION-MAKING BASED ON REMOVAL OF NASAL PACKING AND REFERRAL BACK TO [facility] FOR ENT REFERRAL. Procedure Procedure Dictation: 1000/BILATERAL RHINO ROCKETS REMOVED. NO BLOOD IN OROPHARYNX NO ACTIVE BLEEDING AT THIS TIME. DX & DISP Disposition: Discharge Departure Impression: Primary Impression: Encounter for removal of nasal packing Additional Impression: Epistaxis Condition: Stable Additional Instructions: FOLLOW-UP WITH PRIMARY CARE PROVIDER IN 1 TO 2 DAYS. TAKE MEDICATIONS DIRECTED HERE IN THE EMERGENCY ROOM. OKAY TO CONTINUE HOME MEDICATIONS UNLESS OTHERWISE DISCUSSED DURING YOUR VISIT IN THE EMERGENCY ROOM TODAY. RETURN TO YOUR NEAREST EMERGENCY ROOM IF SYMPTOMS WORSEN OR IF THERE IS NO IMPROVEMENT. CALL 911 IF YOU NEED IMMEDIATE ASSISTANCE. TAKE TYLENOL OR MOTRIN [id number] NEEDED AND IF NO CONTRAINDICATIONS ARE PRESENT. INCREASE ORAL HYDRATION. A WOUND CULTURE OR URINE CULTURE WAS ORDERED HERE IN THE EMERGENCY ROOM DEPARTMENT PLEASE FOLLOW-UP WITH PRIMARY CARE PROVIDER AND ADVISE THEM TO GET REPEAT PORTS FROM OUR FACILITY. IF YOU HAD ANY COLTON WRAP/SPLINTS THAT WERE APPLIED HERE, PLEASE DO NOT REMOVE THEM UNTIL YOU SEE YOUR PRIMARY CARE OR SPECIALTY. FOLLOW UP WITH YOUR DOCTOR AT THE [facility] FOR REFERRAL TO E[facility]IDE [facility]ASH[facility]. Referrals: NONE (PCP) Time of Disposition: 10:03 I have reviewed the case, and I agree with, Diagnosis and Plan LACY BAUMANN NP Sep 07, 2024 10:04
[2024-09-07 10:05] VITALS: BP 152/89; PULSE 80; RESP 20; TEMP 97.5; O2SAT 94
== END 2024-09-07 10:19 | disposition home or self-care (01) ==
LOC: EDH 09:41
DX: R04.0 Epistaxis (principal); E11.9 Type 2 diabetes mellitus without complications; E78.00 Pure hypercholesterolemia, unspecified; Z79.02 Long term (current) use of antithrombotics/antiplatelets; Z79.82 Long term (current) use of aspirin; Z79.84 Long term (current) use of oral hypoglycemic drugs; Z88.1 Allergy status to other antibiotic agents
CPT/HCPCS: 99282